=== PATIENT | female | born 1965 | race Caucasian/White ===

== ENCOUNTER → 2023-09-16 | Outpatient (CLI) | payer BC | END | disposition home or self-care (01) | LOC: CT 09-15 13:00 | PROVIDERS: ATTEND Internal Medicine | DX: J43.2 Centrilobular emphysema (principal); R91.1 Solitary pulmonary nodule; D35.02 Benign neoplasm of left adrenal gland; I25.10 Atherosclerotic heart disease of native coronary artery without angina pectoris ==

== ENCOUNTER → 2023-09-30 | Outpatient (CLI) | payer BC | END | disposition home or self-care (01) | LOC: LAB 07:51 | PROVIDERS: ATTEND Internal Medicine | DX: E27.8 Other specified disorders of adrenal gland (principal) ==

== ENCOUNTER → 2024-10-18 | Outpatient (CLI) | payer BC | END | disposition home or self-care (01) | LOC: MAMMO 10-11 13:30 → US 10-11 13:30 → CARD 00:30 → MAMMO 13:00 | PROVIDERS: ATTEND Obstetrics & Gynecology | DX: I08.0 Rheumatic disorders of both mitral and aortic valves (principal); R01.1 Cardiac murmur, unspecified; R92.8 Other abnormal and inconclusive findings on diagnostic imaging of breast ==